=== PATIENT | male | born 1970 | race Caucasian/White ===

== ENCOUNTER → 2024-10-28 08:20 | Outpatient (CLI) | payer OTHER, SELFPAY ==
--- NOTE | 2024-10-28 08:22 | DI.RAD.S_ITS ---
PROCEDURE: XR LUMBAR SPINE MIN 4V INDICATIONS: BACK PAIN TECHNIQUE: 6 views of the lumbar spine were acquired, including bilateral oblique views. COMPARISON: None. FINDINGS: Bones: 5 nonrib-bearing vertebrae are present. There is normal bony alignment. Spondylitic changes are noted throughout lumbar spine more notably at L5-S1 level. No vertebral body compression fractures. No suspicious bony lesions. Soft tissues: Overlying bowel gas pattern is normal. No suspicious soft tissue calcifications. Oblique images: No pars defects. Suggestion of bilateral bony foraminal stenosis at L4-5 and L5-S1 levels. IMPRESSION: Spondylitic changes throughout lumbar spine more notably at L4-5 and L5-S1 levels with suggestion of bilateral bony foraminal stenosis at L4-5 and L5-S1 levels. No gross pars defects. No acute vertebral body compression fracture. Dictated by: Lisandro Hendricks M.D. on 10/28/2024 at 9:12 Approved by: Lisandro Hendricks M.D. on 10/28/2024 at 9:13
== END ==
PROVIDERS: PCP Nurse Practitioner; Referring Provider Physical Medicine & Rehabilitation; Visit Provider Physical Medicine & Rehabilitation
DX: M54.9 Dorsalgia, unspecified (principal)
CPT/HCPCS: 72110